=== PATIENT | female | born 1985 | race Caucasian/White ===

== ENCOUNTER 2019-06-25 12:09 | Emergency (ER) | payer MEDICAID, MEDICARE ==
[2019-06-25 12:18] VITALS: BP 113/67
[2019-06-25] MEDS ORDERED: AMOX-422 PO (12:30)
[2019-06-25] MEDS ORDERED: HYDR-4353 PO (12:30)
[2019-07-29] MEDS ORDERED: LEVE750T6 PO (11:39)
== END 2019-06-25 12:43 | disposition home or self-care (01) ==
LOC: ER 12:11
DX: J02.9 Acute pharyngitis, unspecified (principal); R06.02 Shortness of breath; R50.9 Fever, unspecified; R59.0 Localized enlarged lymph nodes; R13.10 Dysphagia, unspecified; Z79.2 Long term (current) use of antibiotics; Z79.899 Other long term (current) drug therapy
CPT/HCPCS: 99283

== ENCOUNTER 2019-07-16 11:05 | Outpatient (CLI) | payer MEDICARE, MEDICAID ==
[~2019-07-16 11:05] MED LIST: HYDR-4353 PO
== END 2019-07-16 23:59 | disposition home or self-care (01) ==
LOC: RAD 11:05
PROVIDERS: ATTEND Psychiatry & Neurology Neurology
DX: R56.9 Unspecified convulsions (principal)
CPT/HCPCS: 95816